=== PATIENT | female | born 1985 | race Caucasian/White ===

== ENCOUNTER 2018-11-02 23:06 | Inpatient (IN) | payer OTHER ==
[2018-11-03 00:45] LABS: RUPTURE OF MEMBRANES PLUS POSITIVE (NEGATIVE)
[2018-11-03] MEDS ORDERED: SODIUM CHLORIDE FLUSH 0.9% 10 ML SYRINGE IVP PRN (00:55)
[2018-11-03] MEDS ORDERED: OXYTOCIN/SODIUM CHLORIDE 500 ML IV PRN (00:55)
[2018-11-03] MEDS ORDERED: fentaNYL 100 MCG/2 ML VIAL IVP PRN (00:55)
[2018-11-03] MEDS ORDERED: ONDANSETRON 4 MG/2 ML VIAL IVP PRN ×3 (00:55→09:36)
[2018-11-03] MEDS: LACTATED RINGERS 1,000 ML IV SCH ×2 (01:55→10:36)
[2018-11-03] MEDS ORDERED: AMPICILLIN 2 GM in SODIUM CHLORIDE 0.9% MINIBAG 100 ML IV SCH (02:00)
[2018-11-03 02:15] LABS: BASOPHILS % (AUTO) 0.4 %; EOSINOPHILS # (AUTO) 0.1 10^3/uL (0.0-0.7); EOSINOPHILS % (AUTO) 1.6 %; HGB - HEMOGLOBIN 11.7 g/dL (12.0-16.0); LYMPHOCYTES # (AUTO) 2.2 10^3/uL (1.5-3.5); LYMPHOCYTES % (AUTO) 26.5 %; MEAN CORPUSCULAR HEMOGLOBIN 28.5 pg (27.0-31.0); MEAN CORPUSCULAR HGB CONC 32.8 g/dL (32.0-36.0); MEAN CORPUSCULAR VOLUME 87.1 fL (81.0-99.0); MEAN PLATELET VOLUME 9.5 fL (7.9-10.8); MONOCYTES # (AUTO) 0.5 10^3/uL (0.0-1.0); MONOCYTES % (AUTO) 5.8 %; NEUTROPHILS # (AUTO) 5.4 10^3/uL (1.5-6.6); NEUTROPHILS % (AUTO) 64.7 %; PLT - PLATELET COUNT 171 10^3/uL (130-450); WHITE BLOOD COUNT 8.3 x10^3/uL (4.8-10.8)
[2018-11-03] MEDS ORDERED: OXYTOCIN/SODIUM CHLORIDE 500 ML IV SCH (06:00)
--- NOTE | 2018-11-03 06:09 | HISTORY & PHYSICAL EXAMINATION ---
Admit History - Visit Reason Visit Reason: Membranes rupture - : 1 Parity: 0 Care: positive: Other ([facility]) Risk/History: positive: None Complications This : positive: None Smoking Status: Never smoker - Mother's Labs Mother's Blood Type: positive: O Mother's RH: positive: Positive GBS: positive: Group B Strep Positive - Other Maternal History Other Maternal History: Chief complaint: Rupture of membranes History chief complaint: The patient is a well-developed, well-nourished, very pleasant 33-year-old white female who is a 1 para 0 she has an MUSHTAQ of 11/16/2018 making her approximately 38 weeks and 1 day gestation today.She noted some gush of clear fluid at approximately 21 3000 hours on 10/02/2018. Her it is in the [place]. She originally started her care in [place] and then transferred to the [facility] in September 2018. Her course has been unremarkable. She has a menstrual index of .She came to would be general after the [facility] was put on divert. Upon arrival last night she really was not experiencing any contractions. Her cervix was 1 cm and may be 70% effaced per nursing. Nursing did state the fetus was low however. AmniSure was positive.She was admitted and watched overnight. This morning she is having some irregular contractions. She is still leaking clear fluid. She stated that the fluid was clear when she first ruptured last night. She denies any history of pelvic inflammatory disease, gonorrhea, syphilis, chlamydia, herpes, recurrent vaginal infections, trichomonas or abnormal Pap smears. She does plan to breast-feed. She denies any self or family history of breast disease. Meds/Allgy - Allergies Allergies/Adverse Reactions: Allergies Allergy/AdvReac Type Severity Reaction Status Date / Time No Known Drug Allergies Allergy Verified 11/03/18 01:07 Review of Systems - Constitutional Constitutional: denies: Fatigue, Fever, Chills, Malaise - Eyes Eyes: reports: Corrective lenses. denies: Pain, Irritation, Blurred vision, Spots in vision - Ears, Nose & Throat Ears, Nose & Throat: denies: Ear pain, Hearing loss, Hearing aids, Tinnitus, Nasal pain, Nasal discharge, Dentures, Sore throat, Hoarseness, Mouth lesions - Cardiovascular Cariovascular: denies: Irregular heart rate, Palpitations, Chest pain, Lightheadedness, Syncope - Respiratory Respiratory: denies: Cough, Wheezing, Hemoptysis, Orthopnea, SOB at rest - Gastrointestinal Gastrointestinal: denies: Abdominal pain, Abdominal distention, Constipation, Diarrhea, Change in bowel habits, Rectal bleeding, Nausea, Vomiting - Genitourinary Genitourinary: denies: Dysuria, Frequency, Urgency, Hematuria, Flank pain - Musculoskeletal Musculoskeletal: denies: Muscle pain, Back pain, Muscle aches, Stiffness, Limited range of motion, Muscle weakness - Integumentary Integumentary: denies: Rash, Pruritis, Lesions, Lumps, Nail changes - Neurological Neurological: denies: General weakness, Focal weakness, Headache, Dizziness, Numbness, Memory problems, Pre-existing deficit, Seizures - Psychiatric Psychiatric: denies: Depression, Anxiety, Suicidal, Delusions, Hallucinations - Endocrine Endocrine: denies: Polyuria, Polydypsia, Polyphagia, Intolerance to cold, Intolerance to heat - Hematologic/Lymphatic Hematologic/Lymphatic: denies: Anemia, Bruising, Petechiae, Blood clots, Lymphadenopathy, Bleeding tendencies, Recurrent infections Physical - Abdominal Exam Vital Signs: Temp Pulse Resp BP Pulse Ox 37.0 C 112 H 18 110/63 99 11/02/18 23:24 11/02/18 23:24 11/02/18 23:24 11/02/18 23:24 11/02/18 23:24 Contraction Frequency (min/apart): Irregular Contraction Intensity: positive: Mild Uterine Resting Tone: positive: Soft - Monitoring Strip Review: positive: Category I - Presentation Presentation: positive: Vertex - Vaginal Exam Membranes: positive: Membranes ruptured (AmniSure was positive.) Dilation (in cm): 2 Effacement (%): 80 Station: positive: -1 Cervical Position: positive: Anterior Plan for Labor - Plan For Labor I expect patient to be DC'd or transferred within 96 hours.: Yes Plan for Labor: Impression: Intrauterine at 38 weeks 1 day Spontaneous rupture of membranes Group B positive status Plan: Since the patient really is not having any meaningful contractions at this time though she has been observed for the Past 6 hours. We will therefore start Pitocin augmentation per protocol. Group B antibiotic prophylaxis is already been instituted. We will continue to follow her closely.When she is making adequate changes she may have an epidural if she so desires or other forms of pain management for labor.
[2018-11-03] MEDS: AMPICILLIN 1 GM in SODIUM CHLORIDE 0.9% MINIBAG 100 ML IV SCH ×2 (06:31→10:34)
[2018-11-03] MEDS ORDERED: ROPIVACAINE 0.2% PF 20 ML AMPULE ONE (08:51)
[2018-11-03] MEDS ORDERED: fent/BUPIV 2 MCG/0.125% 250 ML EP ONE (08:52)
--- NOTE | 2018-11-03 09:33 | ANESTHESIA ---
Pre-Anesthesia VS, & Labs - Diagnosis active labor - Procedure labor epidural Vital Signs: Temp Pulse Resp BP Pulse Ox 37.0 C 112 H 18 110/63 99 11/02/18 23:24 11/02/18 23:24 11/02/18 23:24 11/02/18 23:24 11/02/18 23:24 Height 5 ft 5 in Weight (kg) 98 kg - NPO Other (clears from now until epidural d/c) - Is Patient ?: Yes - Lab Results Current Lab Results: Laboratory Tests 11/03/18 01:53: Blood Type O POSITIVE, Antibody Screen NEGATIVE 11/03/18 01:53: WBC 8.3, RBC 4.10 L, Hgb 11.7 L, Hct 35.7 L, MCV 87.1, MCH 28.5, MCHC 32.8, RDW 14.0, Plt Count 171, MPV 9.5, Neut # (Auto) 5.4, Lymph # (Auto) 2.2, [place] # (Auto) 0.5, Eos # (Auto) 0.1, Baso # (Auto) 0.0, Absolute Nucleated RBC 0.00, Nucleated RBC % 0.0 Fish Bones: 11/03/18 01:53 Home Medications and Allergies Active Medications Fentanyl (Fentanyl) 50 mcg IVP Q1H PRN PRN Reason: PAIN Lactated Ringer's (Lr) 1,000 mls @ 150 mls/hr IV .Q6H40M [facility] Last Admin: 11/03/18 01:55 Dose: 150 mls/hr Oxytocin/Sodium Chloride (Pitocin/Sodium Chloride) 500 mls @ 999 mls/hr IV PRN PRN; Protocol PRN Reason: POST- HEMORR PREVENTION Ampicillin Sodium 1 gm/ Sodium (Chloride) 100 mls @ 100 mls/hr IV Q4HR [facility] Last Infusion: 11/03/18 07:05 Dose: Infused Oxytocin/Sodium Chloride (Pitocin/Sodium Chloride) 500 mls @ 1 mls/hr IV TITR [facility]; Protocol Last Admin: 11/03/18 06:19 Dose: 1 milliunit/min, 1 mls/hr Ondansetron HCl (Zofran Inj) 4 mg IVP Q4H PRN PRN Reason: Nausea / Vomiting Sodium Chloride (Normal Saline Flush 0.9%) 10 ml IVP PRN PRN PRN Reason: NEEDED PER PROVIDER ORDERS Last Admin: 11/03/18 02:08 Dose: 10 ml Allergies/Adverse Reactions: Allergies Allergy/AdvReac Type Severity Reaction Status Date / Time No Known Drug Allergies Allergy Verified 11/03/18 01:07 Anes History & Medical History - Anesthetic History Anesthesia Complications: reports: No previous complications - Medical History Cardiovascular: reports: None Pulmonary: reports: None Gastrointestinal: reports: GERD Neuro: reports: None Endocrine/Autoimmune: reports: None Blood Disorders: reports: None Smoking Status: Never smoker - Obstetrical History : 1 Parity: 0 Events: positive: None Complications: positive: None Plan for Delivery: vaginal with epidural Exam General: Alert Dental: WNL Mouth Opening: Greater than 4 Fingerbreadths Neck Mobility: Normal Mallampati classification: II Respiratory: Lungs clear Cardiovascular: Regular rate Mental/Cognitive Status: Alert/Oriented X3 Plan Anesthesia Type: Epidural Consent for Procedure(s) Verified and Reviewed: Yes Code Status: Attempt Resuscitation ASA classification: 1-Healthy patient Is this case an emergency?: No
[2018-11-03] MEDS ORDERED: METOCLOPRAMIDE 10 MG/2 ML VIAL IVP PRN ×2 (09:34→09:36)
[2018-11-03] MEDS ORDERED: LACTATED RINGERS 500 ML IV ONE ×2 (09:34→09:36)
[2018-11-03] MEDS ORDERED: NALBUPHINE 10 MG/ML AMP IVP PRN ×2 (09:34→09:36)
[2018-11-03] MEDS ORDERED: ePHEDrine 50 MG/ML VIAL IVP PRN ×2 (09:34→09:36)
[2018-11-03] MEDS ORDERED: NALOXONE 0.4 MG/ML VIAL IVP PRN ×2 (09:34→09:36)
[2018-11-03] MEDS ORDERED: diphenhydrAMINE INJ 50 MG/ML VIAL IVP PRN ×2 (09:34→09:36)
[2018-11-03] MEDS ORDERED: fent/BUPIV 2 MCG/0.125% 250 ML EP PRN (09:36)
[2018-11-03] MEDS ORDERED: LIDOCAINE-MPF 1% 30 ML VIAL ONE (13:35)
[2018-11-03] MEDS ORDERED: LIDOCAINE 1%-EPI 1:100000 30 ML MDV IC ONE (14:00)
[2018-11-03] MEDS ORDERED: HYDROcod/ACETAM 5/325 MG TABLET PO PRN (14:15)
--- NOTE | 2018-11-03 14:40 | PROVIDER PROGRESS NOTE ---
Labor Progress Note - Uterine Monitoring : 3-4 min Contraction Intensity: positive: Mild to moderate Uterine Resting Tone: positive: Soft - Monitoring Monitor Mode: positive: External ultrasound (Cat 1) - Vaginal Exam Dilation (in cm): 3 Effacement (%): 80 Station: -1 Cervical Position: Anterior - Labor Progress Note Labor Progress Note/Additional Text: This is a late entry. The exam was actually 10 AM this morning. At that point in time the patient wasUsing Pitocin augmentation and approximately 3 milliunits/min.A category 1 external monitor strip was noted.The cervix remained unchanged from her previous check. At this point time she had been just given an epidural.We continue to follow her closely.
--- NOTE | 2018-11-03 14:43 | DELIVERY NOTE ---
Delivery Note - Labor Labor: positive: Augmented by oxytocin - Delivery Method Delivery Method: positive: Spontaneous vaginal delivery - Presentation Presentation: positive: Vertex, ROP - right occiput posterior - Nuchal Cord Nuchal Cord: negative: None (Circum-nuchal cord x1 was noted.) - Anesthetic Anesthetic Type: Anesthetic: positive: Lidocaine - 1% plain Volume: positive: Other (15 mL's) - Amniotic Fluid Description Amniotic Fluid Description: positive: Clear - Laceration Laceration: positive: 1st degree - Suture Suture Type: positive: Other (3-0 repeat and 2-0 Vicryl) - Delivery Outcome Delivery Outcome: positive: Livebirth - : positive: Placed in direct skin contact with mother, Bulb syringe sex: positive: Female - Cord Cord: positive: 3 vessels - Placenta Placenta: positive: Spontaneous, Other (Succenturiate lobes noted.) - Estimated Blood Loss Estimated Blood Loss (in cc): 400 - Post Delivery Events Post Delivery Events: positive: No post delivery events - Delivery Comments (Free Text/Narrative) Delivery Comments (Free Text/Narrative): The patient reached complete with respect to cervical dilatation at approximately 13 20 hrs. on 11/03/2018. She began with expulsatory efforts at that time.She brought the fetus down quite rapidly. At 13 37 hoursShe delivered a viable female over a first-degree perineal laceration. Upon delivery of the of the head circum-nuchal cord x1 was noted and reduced. The rest of the was then delivered with gentle traction and gentle expulsatory efforts.Upon full delivery of the , the was starting to cry. She was moving all of her limbs. Delayed cord clamping took place af ter 2 minutes and then the was placed onto the mother's chest.A sample of the cord blood was then obtained and sent for evaluation. The placenta was then delivered intact with 3 vessels at approximately 1341 hrs. 20 units Pitocin IV drip were given.The uterus is ivan down firmly.The cervix and vaginal vault were inspected and found to be intact. The first-degree perineal laceration was then infiltrated with approximately 15 mL's of 1% lidocaine. As this was being repaired with 3-0 Rapide suture a bleeding vessel was found on theRight side of the laceration very superficially near the introitus.This was rendered hemostatic with a [id number] suture of 2-0 Vicryl suture. The rest of the Laceration was then repaired in the usual manner using heat. At this point time there was still oozing from theArea of the vessel. This was rendered hemostatic again with [id number] sutures of 2-0 Vicryl suture and 2-0 Rapide suture. Hemostasis then followed.The placenta was found then to be intact with 3 vessels. 2 6 sensory lobes were easily noted. The placenta was sent to pathology for evaluation and confirmation.All vessels in the membranes were able to be followed toPlacental lobes.The is a viable female with Apgars of 9 and 9 at 1 5 minutes respectively. For parents identification and eye care were done in the delivery room. Her weight is pending at this present time.Estimated blood loss was approximately 400 mL's. There was a category 1 EFM throughout the entire labor and delivery process except for when she became complete where and she started having some slight variables. These easily cleared before she began with her expulsatory efforts to deliver.Both the and the patient were allowed to remain in the LDRP both in satisfactory conditions.
[2018-11-03] MEDS ORDERED: LACTATED RINGERS 1,000 ML IV SCH (15:00)
[2018-11-03] MEDS: IBUPROFEN 600 MG TABLET PO SCH ×2 (16:13→21:55)
[2018-11-03] MEDS: ACETAMINOPHEN 500 MG TABLET PO SCH (16:14)
[2018-11-04] MEDS: ACETAMINOPHEN 500 MG TABLET PO SCH ×3 (00:09→15:59)
[2018-11-04] MEDS: IBUPROFEN 600 MG TABLET PO SCH ×3 (04:07→15:58)
--- NOTE | 2018-11-04 08:17 | PROVIDER PROGRESS NOTE ---
Subjective - Prog Note Date Prog Note Date: 11/04/18 - Subjective Subjective: The patient is doing well today. She reports her lochia is being light to moderate. She is breast-feeding without difficulty. She is ambulating well and tolerating diet well.She is voiding without difficulty. Objective - Vital Signs/Intake & Output Reviewed Vital Signs: Yes Vital Signs: Vital Signs x48h Temp Pulse Resp BP Pulse Ox 11/04/18 08:02 36.9 C 97 16 107/69 99 11/04/18 05:02 36.9 C 97 18 117/72 98 Intake & Output: Intake & Output 11/01/18 11/02/18 11/03/18 11/04/18 23:59 23:59 23:59 23:59 Intake Total 2250 1500 Output Total 1600 Balance 650 1500 - Objective Comments/Other: The abdomen is soft pliable and nontender. Uterus is firm and nontender approximately 2 fingerbreadths below the umbilicus. - Lab Results Fish Bones: 11/03/18 01:53 - Other Results/Comments Other Results/Comments: The abdomen is soft, pliable and nontender. The uterus is firm and nontender approximately 2 fingerbreadths below the umbilicus. Assessment: day #1 - Stable Plan: We will continue with her present care. As long as she continues to do well discharge is anticipated tomorrow.
[2018-11-04] MEDS ORDERED: WITCH HAZEL/GLYCERIN 1 PAD TOP PRN (19:50)
[2018-11-04] MEDS ORDERED: HYDROCORTISONE 1% CREAM 28 GM TUBE TOP SCH (21:00)
[2018-11-04] MEDS: DOCUSATE SODIUM 100 MG CAPSULE PO SCH (21:03)
[2018-11-05] MEDS: ACETAMINOPHEN 500 MG TABLET PO SCH ×2 (00:28→08:12)
[2018-11-05] MEDS: IBUPROFEN 600 MG TABLET PO SCH ×2 (00:28→08:12)
--- NOTE | 2018-11-05 08:01 | PROVIDER PROGRESS NOTE ---
Subjective - Prog Note Date Prog Note Date: 11/05/18 Prog Note Time: 07:59 - Subjective Subjective: The patient continues to do very well. She is without any complaints today. Her lochia is light.She continues to breast-feed without difficulty. She is voiding without difficulty. She is ambulating and tolerating her diet well. Objective - Vital Signs/Intake & Output Vital Signs: Vital Signs x48h Temp Pulse Resp BP Pulse Ox 11/05/18 02:51 36.8 C 92 16 113/79 99 Intake & Output: Intake & Output 11/02/18 11/03/18 11/04/18 11/05/18 23:59 23:59 23:59 23:59 Intake Total 2250 1500 Output Total 1600 Balance 650 1500 - Objective Comments/Other: The abdomen is soft, pliable and nontender. The uterus is firm and nontender 2 fingerbreadths below the umbilicus. The laceration is clean and dry and well approximated. No signs of infection are appreciated. - Lab Results Fish Bones: 11/03/18 01:53 - Other Results/Comments Other Results/Comments: Impression: day #2-stable Plan: The patient will be able to be discharged home. She will be discharged home with both written and verbal instructions which included such things as: 1. She is to forego any lifting, tampons, douching or intercourse. 2. She is not drive to a car for the next 2 weeks. 3. She is to increase her fluids and continue her vitamins. 4. She is to report any temperatures greater than 100.4 or heavy vaginal bleeding 5. She is to use ibuprofen 600 mg p.o. 3 times daily as needed for cramping 6. She may take a shower or tub baths. 7. As long as she does well she will be seen in the office of her regular OB care provider in 1 week. She will call sooner if she has problems.
[2018-11-05] MEDS: DOCUSATE SODIUM 100 MG CAPSULE PO SCH (08:11)
--- NOTE | 2018-11-05 08:54 | DISCHARGE SUMMARY ---
Physician: Gold Christian DO DATE OF ADMISSION: 11/03/2018 DATE OF DISCHARGE: 11/05/2018 ADMITTING DIAGNOSES 1. Intrauterine at 38 weeks and 1 day gestation. 2. Spontaneous rupture of membranes. 3. Group B positive status. DISCHARGE DIAGNOSES 1. Delivery at 38 weeks and 1 day gestation. 2. Group B strep status. 3. First-degree perineal laceration. PROCEDURES 1. Spontaneous, assisted vaginal delivery. 2. Repair of first-degree perineal laceration. LABORATORIES: Admit CBC revealed WBC is 8.3, RBC is 4.1, hemoglobin 11.7 and hematocrit 35.7. HOSPITAL COURSE: Patient had come to [facility] after having her course done at the [facility]. The [facility] was on divert and so the patient was sent to our hospital for evaluation. She stated that on 11/02/2018, she had experiences spontaneous rupture of membranes at approximately 2115 hours. She stated that the fluid was clear. She was not ivan at that t nicolas. An AmniSure was obtained, which was found to be positive. The patient was therefore admitted a nd observed to see if labor would ensue. Because of the patient's group B strep positive status, she was started on ampicillin and remained on this throughout the labor and delivery process. By approx imately 0600, no labor had ensued. Her cervix was 2 cm dilated, 80% effaced. Pitocin drip was start ed. She then went on to follow a rapid labor progression and went on to deliver a viable female neon ate with Apgars of 9 and 9 at 1 and 5 minutes respectively at approximately 1320 hours on 11/03/2018. A category 1 external monitor strip was noted through the entire labor and delivery process. A first-degree perineal laceration was noted and this was repaired. One is referred to the delivery note for full details. She really actually recovered quite well. By her first day, she was ambulating well and tolerating diet well. Vital signs were stable. She was afebrile. The uteru s was firm, 2 fingerbreadths below the umbilicus. Her lochia was light. By her second da y, she continued to do well. She was without complaints. She was voiding well. She was ambulating well and tolerating her diet well. Uterus remained firm 2 fingerbreadths below the umbilicus. Abdomen was soft and nontender. Lacerati on was well approximated. There was no edema noted or any signs of infection. Patient was breastfee ding without difficulty. She did wish to be discharged to home and it was felt that patient was stab le to be safely discharged to home. Patient was discharged to home with both written and verbal instructions including such things as 1. She should forego any lifting, tampons, douching or intercourse. 2. She is to report any temperature greater than 100.4 or heavy vaginal bleeding. 3. She is not to drive a car for the next 2 weeks. 4. She is to continue her vitamins and increase her fluids. 5. She may use ibuprofen 600 mg p.o. t.i.d. p.r.n. cramping. 6. She may take tub bath or shower at her discretion. She will be seen in the office of her regular OB provider in 1 week. She is to call them sooner if she has any problems. TD: 11/05/2018 08:32
[2018-11-05 13:23] VITALS: BP 122/68
--- NOTE | 2018-11-05 13:33 | Labor Flowsheet ---
Labor Flowsheet Datetime Report Generated by CPN: 11/05/2018 13:32 Datetime: 11/05/2018 08:55 VITAL SIGNS NBP Sys/Vane/Mean (mmHg): 117 : 68 : 79 Pulse: 97 SpO2 (%): 97 LaborFlag: Labor Datetime: 11/03/2018 13:37 UTERINE ACTIVITY Monitor Mode: External Frequency (min): 2-2.5 Quality: Moderate Duration (sec): 70-80 Pattern: Normal: <= 5 Contractions in 10 Minutes Resting Tone (Palpate): Relaxed Contraction Comments: pushing with contractions Stage 2 Comments: delivery Datetime: 11/03/2018 13:30 ASSESSMENT A Monitor Mode: Telemetry FHR Baseline Rate : 140 FHR Baseline Changes: No Baseline Change Variability: Moderate 6-25 bpm Accelerations: None Decelerations: Early Category: Category I Datetime: 11/03/2018 13:19 STAGE 2 Pushing: Coached on Pushing Pushing Position: Pushing with Contractions Pushing Progress: Descent with Pushing Datetime: 11/03/2018 13:17 I/O Interventions: Martinez Discontinued Patient Care Comments: 75 ml out Datetime: 11/03/2018 12:57 VAGINAL EXAM Dilatation (cm): 10.0 Effacement (%): 100 Station: 2 Exam by: Dr. Anahi Cervix, Position: Anterior Datetime: 11/03/2018 12:52 Monitor Interventions for UA: Union Level Adjusted Anesthesia Level Check: T10- Umbilicus Datetime: 11/03/2018 12:45 Patient Position/Activity: Right Tilt Datetime: 11/03/2018 11:30 MEDICATIONS Pitocin (milliunits): Increased to @ 5 Datetime: 11/03/2018 10:33 Antibiotics: Ampicillin IV 1 Gm Datetime: 11/03/2018 10:00 Monitor Interventions for FHR: Ultrasound Adjusted Datetime: 11/03/2018 09:55 Comments: heart rate auscultated in 140s, tracing maternal HR Datetime: 11/03/2018 09:07 Epidural Procedure: Test Dose Datetime: 11/03/2018 08:56 PROCEDURE TIME OUT Procedure Verify: Correct Patient Identity; Accurate Procedure Consent Form; Agreement on Procedure to be Done; Correct Patient Position ANESTHESIA Anesthesia Plans: Epidural Epidural Positioning: Sitting Datetime: 11/03/2018 08:42 COMMUNICATION Communication: Provider at Bedside Communication Comments: SHAREPOINT DESIGNER DEVELOPER Aube here Datetime: 11/03/2018 08:35 Stage of : Labor Provider Notified (Name): SHAREPOINT DESIGNER DEVELOPER Aube Notification Reason: Patient Request Datetime: 11/03/2018 08:33 Pain Coping: Requesting Pain Medication or Epidural Pain Assessment Comments: request for epidural Datetime: 11/03/2018 07:02 Pitocin Checklist: At Least 1 Acceleration of 15 bpm x 15 Seconds in 30 Minutes or Adequate Variabi lity; No More than 1 Late Deceleration Occurred in Past 30 Minutes; No More than 2 Variable Decelerat ions > 60 Seconds in Duration and decreasing >60 bpm in 30 minutes; No More than 5 Uterine Contractio ns in 10 Minutes for any 20 Minute Interval; Uterus Palpates Soft between Contractions PATIENT CARE Oxygen Method: Room Air Datetime: 11/03/2018 06:22 Respirations: 20 Temperature (C): 37.2 Temperature Route: Oral PAIN Pain Scale: 3 Pain Presence: Intermittent Pain Type: Cramping; Dull; Contraction; Pressure Pain Location: Abdomen Pain Goal: 5 Pain Relief Measures: Comfort Measures Datetime: 11/03/2018 05:38 Provider Reviewed Strip: Yes Datetime: 11/03/2018 05:02 Comfort Measures: Breathing/Relaxation; Family Support Datetime: 11/03/2018 02:53 Vaginal Bleeding: None Cervix, Consistency: Soft
== END 2018-11-05 13:30 | disposition home or self-care (01) | DRG 807 ==
LOC: WFO 23:06 → FBP 23:12 → WFO 11-03 00:54 → FBP 11-03 00:55
PROVIDERS: ADMIT Obstetrics & Gynecology; ATTEND Obstetrics & Gynecology
PROC: 10E0XZZ Delivery of Products of Conception, External Approach (ICD-10-PCS; principal; 2018-11-03)
PROC: 0HQ9XZZ Repair Perineum Skin, External Approach (ICD-10-PCS; 2018-11-03)
DX: O42.02 Full-term premature rupture of membranes, onset of labor within 24 hours of rupture (principal); Z37.0 Single live birth; O99.824 Streptococcus B carrier state complicating childbirth; O70.0 First degree perineal laceration during delivery; O69.81X0 Labor and delivery complicated by cord around neck, without compression, not applicable or unspecified; Z3A.38 38 weeks gestation of pregnancy
CPT/HCPCS: 84112; 85025; 86850; 86900; 86901; 99213; A9270; J7120